=== PATIENT | male | born 1950 | race Two or more races ===

== ENCOUNTER 2016-10-30 07:50 | Inpatient (IN) | payer MEDICARE, OTHER ==
[~2016-10-30] VITALS: Ht 172.7 cm; Wt 108.4 kg
[2016-10-30] VITALS (44 sets, daily range): BP systolic 70–156; BP diastolic 36–127
[~2016-10-30 07:50] MED LIST: ATEN50TA PO; LEVO50TA8 PO; LISI10TA5 PO
[2016-10-30] MEDS ORDERED: ALBUTEROL FS 2.5 MG/3 ML VIAL.NEB NEB ONE (08:00)
[2016-10-30] MEDS ORDERED: IPRATROPIUM NEB FS 0.5 MG/2.5 ML AMPUL.NEB NEB ONE (08:00)
[2016-10-30] MEDS ORDERED: ALBUTEROL FS 2.5 MG/3 ML VIAL.NEB ONE (08:08)
[2016-10-30] MEDS ORDERED: IPRATROPIUM NEB FS 0.5 MG/2.5 ML AMPUL.NEB ONE (08:08)
--- NOTE | 2016-10-30 08:10 | NUR ---
PT BIBA FOR HEROINE ABUSE FROM HOME. AMS NOTED. ADELINA. AT BS FOR EVAL. BLOOD DRAWN BY FACILITY MAINTENANCE WORKER AT BS. SAFETY AND COMFORT MEASURES PROVIDED. WILL MONITOR.
[2016-10-30 08:24] LABS: BASOPHILS % (AUTO) 0.4 % (0.0-2.0); EOSINOPHILS % (AUTO) 0.2 % (0.0-6.0); HEMATOCRIT 42 % (39-51); HEMOGLOBIN 13.6 g/dL (13.5-17.5); LYMPHOCYTES # (AUTO) 0.5 /CMM (0.8-4.8); LYMPHOCYTES % (AUTO) 6.8 % (20.0-44.0); MEAN CORPUSCULAR HEMOGLOBIN 31 PG (26.0-33.0); MEAN CORPUSCULAR HGB CONC 32 g/dl (31.0-36.0); MEAN CORPUSCULAR VOLUME 97 fL (80-96); MONOCYTES # (AUTO) 0.4 /CMM (0.1-1.30); MONOCYTES % (AUTO) 4.9 % (2.0-12.0); NEUTROPHILS % (AUTO) 87.7 % (43.0-81.0); PLATELET COUNT (AUTO) 153 /CMM (150-450); RDW COEFFICIENT OF VARIATION 17.1 (11.5-15.0); RED BLOOD CELL COUNT(AUTO) 4.31 MIL/uL (4.5-6.0)
--- NOTE | 2016-10-30 08:30 | NUR ---
JAMEEL AT BS.
[2016-10-30 08:35] LABS: CALCIUM, SERUM 8.5 mg/dL (8.5-10.1); CARBON DIOXIDE 16 mmol/L (21-32); CHLORIDE 105 mmol/L (98-107); CREATININE 4.2 mg/dL (0.6-1.3); GFR 14 mL/min (>60); GLUCOSE 68 mg/dL (74-106); SODIUM SERUM 142 mmol/L (136-145); UREA NITROGEN, BLOOD 40 mg/dL (7-18)
[2016-10-30 08:40] LABS: ALANINE AMINOTRANSFERASE 41 U/L (12-78); ALBUMIN 3.4 g/dL (3.4-5.0); ALCOHOL, BLOOD < 3 mg/dL (0-0); ALKALINE PHOSPHATASE 106 U/L (46-116); ASPARTATE AMINOTRANSFERASE 113 U/L (15-37); BILIRUBIN,DIRECT 0.3 mg/dL (0.0-0.2); BILIRUBIN,TOTAL 0.9 mg/dL (0.2-1.0); TOTAL PROTEIN, SERUM 7.1 g/dL (6.4-8.2)
[2016-10-30 08:42] LABS: SALICYLATE 1.6 mg/dL (2.8-20.0); TROPONIN I 0.036 ng/mL (0.00-0.056)
[2016-10-30 08:43] LABS: INR 1.05 (0.87-1.13); PROTHROMBIN TIME 11.3 SECS (9.5-12.7)
[2016-10-30] MEDS ORDERED: IV NS 0.9% 1,000 ML ONE ×2 (08:48→10:03)
[2016-10-30] MEDS ORDERED: IV SET PRIMARY PUMP SET 1 EA INFUS.SET MC ONE ×6 (08:49→21:44)
[2016-10-30] MEDS ORDERED: NALOXONE HCL 0.4 MG/ML AMPUL IV ONE (09:00)
[2016-10-30] MEDS ORDERED: NALOXONE PREFILLED SYRINGE 2 MG/2 ML SYRINGE ONE (09:07)
--- NOTE | 2016-10-30 09:10 | NUR ---
PT MEDICATED ORDERED.
--- NOTE | 2016-10-30 09:19 | NUR ---
PT TAKEN TO CT.
--- NOTE | 2016-10-30 09:26 | NUR ---
PANEL ON-CALL PAGED
[2016-10-30] MEDS ORDERED: IV NS 0.9% 1,000 ML BAG IV ONE ×3 (09:30→10:30)
[2016-10-30 09:35] LABS: CANNABINOID, URINE NEGATIVE (NEGATIVE); PHENCYCLIDINE SCREEN,URINE NEGATIVE (NEGATIVE)
[2016-10-30 09:42] LABS: APPEARANCE,URINE SL CLOUDY (CLEAR); BILIRUBIN,URINE 1+ (NEGATIVE); BLOOD, URINE TRACE Ery/uL (NEGATIVE); COLOR,URINE YELLOW (YELLOW); KETONES,URINE TRACE (NEGATIVE); LEUKOCYTE ESTERASE ,URINE TRACE (NEGATIVE); NITRITE, URINE NEGATIVE (NEGATIVE); PROTEIN,URINE 1+ mg/dl (NEGATIVE); UGLUCOSE NEGATIVE (NEGATIVE); UROBILINOGEN,URINE 0.2 EU/dL (0.2)
[2016-10-30 09:46] LABS: RBC,URINE 0-2 /HPF (0-2)
[2016-10-30 09:47] LABS: ADD URINE CULTURE NO; BACTERIA,URINE Few /HPF (None Seen); SQUAMOUS EPITHELIAL CELL,UR Few /HPF (None Seen)
[2016-10-30] MEDS ORDERED: CLINDAMYCIN 600 MG in IV D5W 100 ML IV ONE (10:00)
[2016-10-30] MEDS ORDERED: CEFTRIAXONE 1GM BAG (ER ONLY) 50 ML IV ONE ×2 (10:00→10:03)
[2016-10-30 10:07] LABS: ABG BASE EXCESS -13.3 mmol/L; ABG PCO2 41.9 mmHg (35.0-45.0); ABG PH 7.164 (7.350-7.450); ABG PO2 75.1 mmHg (75.0-100.0); ABG TOTAL HEMOGLOBIN 13.5 G/dL (13.5-18.0); COHb 1.3 % (0.5-1.5); MetHb 0.3 % (0.0-1.5); O2Hb 90.5 % (94.0-97.0); SITE, ABG Left Radial; VENT MODE, BG 3LPM VIA N/C
--- NOTE | 2016-10-30 10:10 | NUR ---
REPORT GIVEN TO MATTHEW POLLOCK FOR ICU 251
[2016-10-30 10:16] LABS: LACTIC ACID 7.3 mmol/L (0.4-2.0)
[2016-10-30] MEDS ORDERED: IV NS 0.9% 1,000 ML IV PRN ×2 (11:17→11:30)
--- NOTE | 2016-10-30 11:20 | NUR ---
field horticultural specialty grower received pt from er not stable difficulty breathing abg results and pt conditions communicated with Dr. Gomez orders received for bipap and repeat 1hr after bipap, Song borja also contacted will do echo and hold 3L of fluids ordered with song borja and repeat abg in 1hr will follow md orders and communicate with md for change of condition, pt has billateral swelling of lower extremities with scabs all over 4 extremities. pt is lethargic confused able to follow commands.
[2016-10-30] MEDS ORDERED: ACETAMINOPHEN 325 MG TABLET PO PRN (11:30)
[2016-10-30] MEDS ORDERED: ENOXAPARIN SODIUM 40 MG/0.4 ML DISP.SYRIN SQ SCH (11:30)
[2016-10-30] MEDS ORDERED: ONDANSETRON HCL/PF 4 MG/2 ML VIAL IVP PRN (11:30)
--- NOTE | 2016-10-30 11:30 | NUR ---
pt placed on bipap per md order. 17/11 [id number]. alarms set mike well at this time
[2016-10-30] MEDS ORDERED: FEE PK DOSING 1 MIN EA MC ONE (11:32)
--- NOTE | 2016-10-30 11:45 | NUR ---
RN CARDIOVASCULAR ICU RECEIVED PATIENT FROM THE PREVIOUS SHIFT. POOR GAIT ON AMBULATION BUT WAS ABLE TO TRANSFER SELF TO BED WITH MINIMAL ASSISTANCE. ALERT BUT LETHARGIC. HYPOTENSIVE AT TIMES. IVF RUNNING. STABLE VITAL SINGS. SALESPERSON NECKTIES MADE AWARE OF ABG RESULTS AND CHEMISTRY RESULTS. RECEIVED ORDERS FOR BIPAP. ABLE TO FOLLOW COMMANDS ON BIPAP. WILL CONTINUE TO MONITOR AND PROVIDE CARE. Addendum: 10/30/16 at 1931 by ERNESTO EDDY RN MISTAKE - PATIENT WAS RECEIVED FROM ON A GURNEY.
[2016-10-30] MEDS ORDERED: SECONDARY IV SET 1 EA INFUS.SET MC ONE ×3 (11:58→16:35)
[2016-10-30] MEDS ORDERED: LEVOFLOXACIN 500 MG /D5W 100ML 500 MG in PREMIX 1 EA IV SCH (12:00)
[2016-10-30] MEDS ORDERED: PIPERACILLIN /TAZOBACTAM 2.25 G in IV D5W 50 ML IV SCH ×2 (12:00→13:00)
[2016-10-30] MEDS ORDERED: LEVOFLOXACIN 750 MG /D5W 150ML 750 MG in PREMIX 1 EA IV ONE (12:00)
[2016-10-30 12:58] LABS: ABG BASE EXCESS -13.5 mmol/L; ABG OXYGEN SATURATION 97.9 % (92.0-98.5); ABG PH 7.262 (7.350-7.450); ABG PO2 145.9 mmHg (75.0-100.0); ABG TOTAL HEMOGLOBIN 13.1 G/dL (13.5-18.0); AaDO2 180.2 mmHg; COHb 0.9 % (0.5-1.5); MetHb 0.8 % (0.0-1.5); O2Hb 96.2 % (94.0-97.0); SITE, ABG Right Radial
[2016-10-30] MEDS: PIPERACILLIN /TAZOBACTAM 2.25 G in IV D5W 50 ML IV SCH ×2 (13:19→20:31)
[2016-10-30] MEDS: VANCOMYCIN 1.25 GM in IV D5W 500 ML IV SCH ×2 (13:19→20:09)
[2016-10-30] MEDS: ENOXAPARIN SODIUM 30 MG/0.3 ML DISP.SYRIN SQ SCH (13:21)
[2016-10-30] MEDS ORDERED: IV NS 0.9% 1,000 ML BAG IV PRN (13:30)
[2016-10-30] MEDS: IV NS 0.9% 3,000 ML IV PRN ×3 (13:31→19:03)
--- NOTE | 2016-10-30 15:05 | NUR ---
NEIGHBORHOOD CONSERVATION OFFICER PATIENT WAS SEEN AND EXAMINED BY THE RECEPTION AT BEDSIDE. PATIENT IS ALERT AND RESTLESS ON THE BIPAP.
--- NOTE | 2016-10-30 15:13 | NUR ---
SLOPE TENDER NO FOLLOW ABGS FOR TODAY PER VACUUM APPLICATOR OPERATOR. ALSO RECEIVED ORDERS TO HOLD THE 3RD NS BOLUS ORDERED BY VENANCIO DIEZ NP.
--- NOTE | 2016-10-30 15:48 | NUR ---
DISTILLATION OPERATOR PATIENT WAS SEEN BY THE YARD CONDUCTOR. RN INFORMED MD THAT PATIENT IS HYPOTENSIVE AT TIMES. RECEIVED ORDERS FOR PICC LINE INSERTION. ALSO MD INFORMED RN TO INFORM THE MD IF PATIENT'S CONDITION CHANGES/ BECOMES CONSISTENTLY HYPOTENSIVE. WILL MONITOR.
[2016-10-30 16:33] LABS: ABG BASE EXCESS -14.2 mmol/L; ABG OXYGEN SATURATION 94.6 % (92.0-98.5); ABG PCO2 41.7 mmHg (35.0-45.0); ABG PH 7.145 (7.350-7.450); ABG PO2 86.3 mmHg (75.0-100.0); ABG TOTAL HEMOGLOBIN 12.3 G/dL (13.5-18.0); AaDO2 223.3 mmHg; COHb 1.6 % (0.5-1.5); MetHb 0.6 % (0.0-1.5); O2Hb 92.5 % (94.0-97.0); PEEP,BG 5 cm H2O; SITE, ABG Left Radial
--- NOTE | 2016-10-30 17:05 | NUR ---
MEDICAL SCIENTIFIC LIAISON PATIENT IS ON BIPAP. PATIENT IS RESTLESS ON BIPAP BUT ABLE TO FOLLOW COMMANDS. GENERALLY AWARE OF HIS OWN HEALTH STATUS.
[2016-10-30 17:15] LABS: CREATINE KINASE MB 119.5 ng/mL (0-3.6)
--- NOTE | 2016-10-30 17:24 | NUR ---
HAND OUTSIDE CUTTER CALLED RADIOLOGY FOR STAT XRAY
--- NOTE | 2016-10-30 17:25 | NUR ---
RT PT ORALLY INTUBATED BY DR. DIEZ WITH 7.5 ETT AT 25 CM AT THE LIP. PT IS ON [facility] VENT WITH SETTINGS PER MD ORDER. LINING BASTER DONE. BILAT BREATH SOUNDS ON AUSCULTATION. SUCTIONED SMALL AMOUNTS OF THICK, WHITE/YELLOW SECRETIONS. VENT PLUGGED INTO RED OUTLET. ETT SECURED BY ANCHOR FAST AND AIRWAY PATENT. ALARMS ON AND SET PROPERLY. AMBU BAG AT HEAD OF BED. NO SIGNS OF DISTRESS NOTED AT THIS TIME. WILL CONTINUE TO MONITOR THE PATIENT CLOSELY. Addendum: 10/30/16 at 1841 by RADHA GARCIA RT Amended: Links added.
--- NOTE | 2016-10-30 17:25 | NUR ---
MANPOWER DEVELOPMENT MANAGER PATIENT'S RECENT ABG RESULTS INFORMED TO SIGN LANGUAGE TEACHER. RECEIVED ORDERS TO INTUBATE. VENANCIO DIEZ CHEMICAL PLANT TECHNICAL DIRECTOR INTUBATED THE PATIENT. 2 ATTEMPTS. SEDATED ON PROPOFOL. LEVOPHED GTT INITIATED DUE TO HYPOTENSION.
--- NOTE | 2016-10-30 17:30 | NUR ---
OVERHEAD GARAGE DOOR HANGER PATIENT NOTED TO BE TACHYPNEIC AFTER THE INTUBATION. PATIENT WAS STARTED ON PROPOFOL POST INTUBATION. VENANCIO DIEZ NP AWARE.
[2016-10-30] MEDS: PROPOFOL 100 ML IV PRN (17:38)
[2016-10-30] MEDS: NOREPINEPHRINE 16 MG in IV D5W 500 ML IV PRN (17:38)
--- NOTE | 2016-10-30 18:13 | NUR ---
design engineer agricultural equipment received call from radiology to pull out et tube by 2cm bc its in the right bronchus, paged rt stat orders put in.
--- NOTE | 2016-10-30 18:20 | NUR ---
RT ET TUBE PULLED OUT 2CM PER MD ORDER. PREVIOUS TUBE PLACEMENT WAS AT 25CM AND CURRENT TUBE PLACEMENT IS SECURED 23CM AT THE LIP LINE. EQUAL BILATERAL BREATHE SOUNDS AND CHEST RISE. NO SIGNS OF RESPIRATORY DISTRESS, WILL CONTINUE TO MONITOR.
--- NOTE | 2016-10-30 19:05 | NUR ---
ENAMEL MACHINE OPERATOR PROPOFOL DECREASED 10MCG.
[2016-10-30] MEDS ORDERED: ETOMIDATE 2 MG/ML VIAL IV ONE (19:40)
[2016-10-30] MEDS ORDERED: ROCURONIUM BROMIDE 50 MG/5 ML IV ONE (19:41)
[2016-10-30 19:46] LABS: ABG BASE EXCESS -15.6 mmol/L; ABG OXYGEN SATURATION 92.1 % (92.0-98.5); ABG PCO2 50.2 mmHg (35.0-45.0); ABG PH 7.074 (7.350-7.450); ABG PO2 76.4 mmHg (75.0-100.0); AaDO2 586.4 mmHg; COHb 1.4 % (0.5-1.5); MetHb 0.6 % (0.0-1.5); O2Hb 90.3 % (94.0-97.0); SITE, ABG Right Brachial
--- NOTE | 2016-10-30 19:52 | NUR ---
BENCH REPAIR TECHNICIAN: POST INTUBATION ABG RESULTS REPORTED TO DR CARRANZA . DR CARRANZA AWARE AD GAVE ORDER TO CHANGE VENT SETTINGS . CHANGE IVF TO BICARB DRIP AND GIVE TWO AMPS BICARB. REDO ABG IN 2 HOURS AND CALL WITH ABNORMAL RESULTS. SANTIAGO RT AWARE OF NEW ORDER FOR VENT CHANGES.
--- NOTE | 2016-10-30 20:10 | NUR ---
MEDIA LIAISON OFFICER : VENT SETTING CHANGES DONE . WILL MONITOR RESPIRATORY STATUS .
--- NOTE | 2016-10-30 20:22 | NUR ---
vent settings were changed per dr Gomez, AC 26, 650,100%, +5 Addendum: 10/30/16 at 2022 by SANTIAGO KENNEY RT Amended: Links added.
[2016-10-30] MEDS ORDERED: SODIUM BICARBONATE SYR 50 MEQ/50 ML DISP.SYRIN IV ONE (20:30)
[2016-10-30] MEDS: Sodium Bicarbonate 100 MEQ in IV D5W 1,000 ML IV PRN (20:48)
--- NOTE | 2016-10-30 21:30 | NUR ---
TRACTOR TECHNICIAN: PTS O2 SATURATION IS SUSTAINING IN THE 80'S . HOB ELEVATED PT SUCTIONED. MINIMAL SECRETIONS NOTED. FIO2 100% . LEVOPHED AT MAX DOSE OF 40 MCG /MIN . DR CARRANZA AWARE AND GAVE ORDER FOR STAT ABG AND STAT CXR DUE TO READJUSTMENT OF ETT DURING DAY SHIFT . DR CARRANZA ALSO GAVE ORDER TO START NEOSYNEPHRINE.
--- NOTE | 2016-10-30 21:40 | NUR ---
NIGHT SHIFT : DR CARRANZA AWARE OF STAT ABG RESULTS . NO NEW ORDERS GIVEN . WAITING FOR CXR RESULTS.
[2016-10-30] MEDS ORDERED: PHENYLEPHRINE 10 MG/ML VIAL ONE (21:43)
[2016-10-30] MEDS ORDERED: IV D5W 250 ML IV ONE (21:44)
[2016-10-30 21:45] LABS: ABG BASE EXCESS -10.3 mmol/L; ABG PCO2 34.1 mmHg (35.0-45.0); ABG PH 7.275 (7.350-7.450); ABG PO2 70.9 mmHg (75.0-100.0); COHb 1.3 % (0.5-1.5); MetHb 0.8 % (0.0-1.5); SITE, ABG Right Brachial
[2016-10-30] MEDS: PHENYLEPHRINE 40 MG in IV D5W 250 ML IV PRN (21:54)
--- NOTE | 2016-10-30 22:15 | NUR ---
WATER TAXI OPERATOR: CALLED RADIOLOGY TO FOLLOW UP ON CXR RESULTS. STILL WAITING .
--- NOTE | 2016-10-30 22:30 | NUR ---
POLICE DETENTION ATTENDANT: STAT CXR READ , ETT IN CORRECT POSITION.
[2016-10-31] VITALS (86 sets, daily range): BP systolic 55–113; BP diastolic 23–70
--- NOTE | 2016-10-31 | NUR ---
NEAR EAST ARCHEOLOGY PROFESSOR TEMP SLIGHTLY ELEVATED , 100.5. HR ALSO ELEVATED .COOLING MEASURES DONE AND FAN USED TO HELP REDUCE TEMP. WILL CONT TO MONITOR.
[2016-10-31] MEDS ORDERED: NOREPINEPHRINE 4 MG/4 ML AMPUL IV ONE (00:30)
[2016-10-31] MEDS: NOREPINEPHRINE 16 MG in IV D5W 500 ML IV PRN ×3 (00:41→13:59)
--- NOTE | 2016-10-31 01:15 | NUR ---
BRUSH MACHINE SETTER: HR ELEVATED. REPOSITIONED PT AND COOLING MEASURES CONTINUED. REPLACED ALL LEADS AND HR DECREASED TO NORMAL LIMITS.
[2016-10-31] MEDS ORDERED: PHENYLEPHRINE 10 MG/ML VIAL ONE ×2 (01:26→04:35)
[2016-10-31] MEDS ORDERED: IV D5W 250 ML IV ONE ×2 (01:26→04:35)
--- NOTE | 2016-10-31 01:32 | NUR ---
ASSISTANT TO THE CEO NON ADMINISTERED LEVOPHED AD NEOSYNEPHRINE. PHARMACY DID NOT STOCK LEVO AND ARGENIS IS NEW ORDER.
[2016-10-31] MEDS: PHENYLEPHRINE 40 MG in IV D5W 250 ML IV PRN ×5 (01:35→15:00)
--- NOTE | 2016-10-31 02:51 | NUR ---
CLINICAL COORDINATOR: NGT INSERTED IN RIGHT NARE W ASSISST OF CHARGE NURSE . VERIFIED PLACEMENT BY AUSCULTATION AND ASPIRATION. GREEN BILE NOTED. PT HAS VERY LOW BP AND DOESN'T TOLERATE ACTIVITY WELL. CONT TO TURN AND REPOSITION THE PT EVERY TWO HOURS TOLERATED. KEEP HOB SLIGHTLY ELEVATED.
[2016-10-31] MEDS ORDERED: IV NS 0.9% 250 ML IV ONE (04:25)
[2016-10-31] MEDS ORDERED: IV NS 0.9% 250 ML IV PRN ×2 (04:30→07:30)
[2016-10-31] MEDS: PIPERACILLIN /TAZOBACTAM 2.25 G in IV D5W 50 ML IV SCH ×2 (04:48→13:19)
[2016-10-31] MEDS: PROPOFOL 100 ML IV PRN ×2 (04:49→13:47)
[2016-10-31 05:04] LABS: BASOPHILS % (AUTO) 0.1 % (0.0-2.0); EOSINOPHILS % (AUTO) 0.3 % (0.0-6.0); HEMATOCRIT 40 % (39-51); HEMOGLOBIN 13.1 g/dL (13.5-17.5); LYMPHOCYTES # (AUTO) 0.6 /CMM (0.8-4.8); MEAN CORPUSCULAR HEMOGLOBIN 32 PG (26.0-33.0); MEAN CORPUSCULAR HGB CONC 33 g/dl (31.0-36.0); MEAN CORPUSCULAR VOLUME 97 fL (80-96); MONOCYTES # (AUTO) 0.4 /CMM (0.1-1.30); MONOCYTES % (AUTO) 8.1 % (2.0-12.0); NEUTROPHILS # (AUTO) 4.5 /CMM (1.8-8.9); NEUTROPHILS % (AUTO) 80.5 % (43.0-81.0); PLATELET COUNT (AUTO) 122 /CMM (150-450); RDW COEFFICIENT OF VARIATION 16.5 (11.5-15.0); RED BLOOD CELL COUNT(AUTO) 4.13 MIL/uL (4.5-6.0); WHITE BLOOD COUNT (AUTO) 5.6 K/uL (4.3-11.0)
[2016-10-31] MEDS: VANCOMYCIN 1.25 GM in IV D5W 500 ML IV SCH (05:21)
[2016-10-31 05:28] LABS: THYROID STIMULATING HORMONE 0.891 uIU/mL (0.358-3.74)
[2016-10-31 05:34] LABS: ALBUMIN 2.6 g/dL (3.4-5.0); BILIRUBIN,TOTAL 0.7 mg/dL (0.2-1.0); CREATININE 4.9 mg/dL (0.6-1.3); POTASSIUM 4.4 mmol/L (3.5-5.1); TOTAL PROTEIN, SERUM 6.1 g/dL (6.4-8.2)
[2016-10-31 06:02] LABS: ANISOCYTOSIS 1+; BAND % (MANUAL) 42 % (0.0-5.0); LYMPHOCYTES % (MANUAL) 12 % (16-48); MONOCYTES % (MANUAL) 10 % (0-11.0); MYELOCYTES % 3 % (0-0); NEUTROPHILS % (MANUAL) 33 (42-76); PLATELET ESTIMATE GIANT PLATELET SEEN
--- NOTE | 2016-10-31 06:30 | NUR ---
AIRPLANE FIRST OFFICER DR CARRANZA CALLED FOR ABG RESULTS. ABG ORDER WAS PUT IN FOR 6 AM TODAY AND RT WAS MADE AWARE EARLIER IN THE SHIFT . ABG HAS NOT BEEN DONE BY RT. CALLED RT TO COME AND DO ABG STAT.
--- NOTE | 2016-10-31 06:56 | NUR ---
SENIOR MECHANICAL ENGINEER: ABG DONE RESULTS GIVEN TO DR CARRANZA . NEW ORDERS ENDORSED TO AM NURSE
[2016-10-31] MEDS: Sodium Bicarbonate 100 MEQ in IV D5W 1,000 ML IV PRN (07:24)
[2016-10-31] MEDS ORDERED: PANTOPRAZOLE 40 MG TABLET.DR PO SCH (07:30)
--- NOTE | 2016-10-31 07:45 | NUR ---
WOUND CARE CONSULT PATIENT UNABLE TO BE TURNED FOR SKIN ASSESSMENT AT THIS TIME DUE TO HEMODYNAMIC INSTABILITY. PATIENT ON MULTIPLE PRESSORS AT THIS TIME. I HAVE REVIEWED PHOTO IMAGES AND PER PHOTO OF THE SACRAL REGION AND NURSING DOCUMENTATION PATIENT HAS AT LEAST PARTIAL THICKNESS SKIN BREAKDOWN TO THE SACRAL AREA POA. RECOMMEND HYDROGEL AND MEPILEX DAILY. A 1ST STEP LOW AIRLOSS MATTRESS HAS BEEN ORDERED AND WILL BE PLACED PATIENT CONDITION PERMITS. CURRENTLY ON AN ATMOSAIR PRESSURE REDISTRIBUTION MATTRESS. RECOMMEND Florence PECK FOR MOISTURE MANAGEMENT. CONTINUE ALL PRESSURE ULCER PREVENTION MEASURES PER CURRENT PLAN OF CARE. PATIENT ALSO PRESENTS WITH MULTIPLE RAISED, SCABBED SKIN LESIONS TO THE BILATERAL LOWER LEGS THAT ARE CURRENTLY DRY AT THIS TIME. PATIENT WITH RAY AT 9. PATIENT WITH MULTI SYSTEM ORGAN FAILURE, FURTHER SKIN BREAKDOWN MAY BE UNAVOIDABLE. ALL DISCUSSED WITH NURSING AT THE BEDSIDE.
[2016-10-31] MEDS ORDERED: HYDROGEL DRESSING 90 GM TUBE TP PRN (08:00)
[2016-10-31] MEDS ORDERED: Z GUARD REMEDY 2 OZ OINT TP PRN (08:00)
--- NOTE | 2016-10-31 08:00 | NUR ---
ICU/RN INITIAL NOTES,AM RECEIVED PT FROM NIGHT NURSE.PT INTUBATED ETT 7.5, 23 @ THE LIP. PT ON VENT SETTINGS ORDERED BY , ABG DONE IN AM, NOTIFIED OF RESULTS, NEW ORDERS RECEIVED. DESPITE FULL VENTILATOR SUPPORT PATIENT MAINTAINING 02 SAT 91-93%. PT CURRENTLY SEDATED, NOT STABLE FOR SEDATION VACATION AT THIS TIME. PT SINUS ON TELE, WILL CONTINUE TO MONITOR. LEVOPHED INFUSING AT MAX DOSE ALONG WITH ARGENIS FOR BLOOD PRESSURE SUPPORT. PER DR. CARRANZA CHANGED THE RATE OF FLUIDS (D5 WITH 2 AMPS OF BICARB) TO 50ML/HR FROM 100 ML/HR. RIGHT NARE NG TUBE IN PLACE, PT NPO, TUBE CLAMPED. LEFT UPPER ARM PICC AND PIV'S PATENT AND INTACT, NO S/S OF INFECTION OR INFILTRATION NOTED. PT SUPINE AT THIS TIME. WILL NOT REPOSITION SINCE PATIENTS CONDITION DOES NOTE PERMIT. WILL CONTINUE TO ASSESS AND TURN AND REPOSITION PER PROTOCOL. ALL SAFETY MEASURES TAKEN,BED IN LOW POSITION, SIDE RAILS UP. TEMP 99.9, COOLING MEASURES TAKEN. WILL REASSESS.
[2016-10-31] MEDS ORDERED: VASOPRESSIN INJ 50 UNIT in IV D5W 497.5 ML IV PRN ×2 (08:30→09:30)
[2016-10-31 08:44] LABS: ABG BASE EXCESS -10.3 mmol/L; ABG OXYGEN SATURATION 92.3 % (92.0-98.5); ABG PCO2 38.1 mmHg (35.0-45.0); ABG PH 7.247 (7.350-7.450); ABG PO2 68.7 mmHg (75.0-100.0); ABG TOTAL HEMOGLOBIN 13.6 G/dL (13.5-18.0); AaDO2 606.2 mmHg; COHb 1.3 % (0.5-1.5); MetHb 0.5 % (0.0-1.5); O2Hb 90.6 % (94.0-97.0); SITE, ABG Right Brachial; VENT MODE, BG AC 650 100% +5
--- NOTE | 2016-10-31 08:50 | NUR ---
ICU/RN: WOUND NURSE AT BEDSIDE. UNABLE TO COMPLETE SKIN/WOUND ASSESSMENT DUE TO PATIENTS UNSTABLE CONDITION. WILL FOLLOW UP. ALSO UNABLE TO PUT KCI MATTRESS ON BED DUE PT DESATURATING FURTHER WITH TURNS. WILL CONTINUE TO MONITOR AND ASSESS. Addendum: 10/31/16 at 0939 by LINDA SCHUMACHER RN INCORRECT TIME: INTENDED FOR 9668
[2016-10-31 08:56] LABS: CREATINE KINASE MB 60.6 ng/mL (0-3.6)
[2016-10-31] MEDS ORDERED: HYDROGEL DRESSING 90 GM TUBE TP SCH (09:00)
[2016-10-31] MEDS ORDERED: PANTOPRAZOLE 40 MG VIAL IV SCH (09:00)
[2016-10-31] MEDS ORDERED: Z GUARD REMEDY 2 OZ OINT TP SCH (09:00)
[2016-10-31] MEDS ORDERED: IV SET PRIMARY PUMP SET 1 EA INFUS.SET MC ONE ×2 (10:03→16:05)
[2016-10-31 10:23] LABS: ABG BASE EXCESS -10.7 mmol/L; ABG OXYGEN SATURATION 91.7 % (92.0-98.5); ABG PCO2 35.3 mmHg (35.0-45.0); ABG PH 7.259 (7.350-7.450); ABG PO2 66.7 mmHg (75.0-100.0); ABG TOTAL HEMOGLOBIN 14.1 G/dL (13.5-18.0); COHb 1.1 % (0.5-1.5); MetHb 0.6 % (0.0-1.5); O2Hb 90.1 % (94.0-97.0); PEEP,BG 10 cm H2O; SITE, ABG Right Brachial; VT, ABG 650 mL
[2016-10-31 11:20] LABS: D-DIMER 12.3 mg/L(FEU (0.17-0.50); INR 1.22 (0.87-1.13); PROTHROMBIN TIME 13.2 SECS (9.5-12.7)
[2016-10-31 11:32] LABS: CALCIUM, SERUM 7.3 mg/dL (8.5-10.1); CREATININE 5.3 mg/dL (0.6-1.3)
--- NOTE | 2016-10-31 11:45 | NUR ---
ICU/RN: AT BEDSIDE. PT NOW ON THREE VASOPRESSORS. ABG DONE, RESULTS RELAYED TO MD, VENT CHANGES DONE. PEEP NOW WILL BE 12. WILL CONTINUE TO MONITOR.
--- NOTE | 2016-10-31 11:58 | NUR ---
INCREASED PEEP TO [address] CARRANZA ORDER Addendum: 10/31/16 at 1410 by MONSTER AGUIRRE RT Amended: Links added.
[2016-10-31] MEDS: ENOXAPARIN SODIUM 30 MG/0.3 ML DISP.SYRIN SQ SCH (12:41)
--- NOTE | 2016-10-31 13:57 | NUR ---
PT REC'D ON ETT SIZE 7.5 23CM @ LIP. PT ON [facility] VENT ON SETTINGS CHARTED. STEAM PIPE FITTER CUFF PRESSURE NOTED. BREATH SOUNDS ARE CLEAR/DIM AND PT HAS BILATERAL CHEST RISE. SX'D THICK SMALL YELLOW SECRETIONS. ALARMS ARE SET AND AUDIBLE, VENT IS PLUGGED IN RED OUTLET. AMBU BAG IS BEDSIDE. WILL CONTINUE TO MONITOR. Addendum: 10/31/16 at 1407 by MONSTER AGUIRRE RT Amended: Links added.
--- NOTE | 2016-10-31 14:08 | NUR ---
INCREASED PEEP TO [address] CARRANZA ORDER Addendum: 10/31/16 at 1409 by MONSTER AGUIRRE RT Amended: Links added.
--- NOTE | 2016-10-31 15:00 | NUR ---
ICU/RN: STAT ORDERS RECEIVED FOR 2 AMPS BICARB, GIVEN, FOR HEART RATE SLOWING AND COMPLEXES DECREASING IN SIZE AND WIDENING.
[2016-10-31] MEDS ORDERED: SODIUM BICARBONATE SYR 50 MEQ/50 ML DISP.SYRIN ONE (15:04)
[2016-10-31] MEDS ORDERED: SODIUM BICARBONATE SYR 50 MEQ/50 ML DISP.SYRIN IV STA (15:04)
--- NOTE | 2016-10-31 15:10 | NUR ---
2 AMPS BICARB GIVEN STAT BY OVERRIDE HEART RATE SLOWING AND COMPLEXES DECREASING IN SIZE AND WIDENING WITH ST SEG ELEVATION-CHARTED ACCORDINGLY
--- NOTE | 2016-10-31 15:26 | NUR ---
DECREASED PEEP TO 0 DUE TO LOW BP AND HR PER DR. CARRANZA ORDER Addendum: 10/31/16 at 1526 by MONSTER AGUIRRE RT Amended: Links added.
[2016-10-31] MEDS ORDERED: PHENYLEPHRINE 80 MG in IV D5W 250 ML IV PRN (15:30)
[2016-10-31] MEDS ORDERED: HEPARIN SODIUM, PORCINE 5000 UNITS/1 ML VIAL IV STA (15:45)
--- NOTE | 2016-10-31 15:58 | NUR ---
ICU/RN: REPORTED RESULTS OF BILATERAL LOWER EXTREMITY DOPPLER. Nonocclusive thrombus in the left superficial femoral vein. AWARE. ORDERS FOR HEPARIN DRIP RECEIVED. BOLUS AND DRIP INITIATED. WILL FOLLOW PROTOCOL.
[2016-10-31] MEDS ORDERED: HEPARIN INFUSION/D5W 500 ML IV PRN (16:00)
--- NOTE | 2016-10-31 17:01 | NUR ---
ICU/RN: PT UPDATE: PT UNSTABLE, MAX ON LEVOPHED, VASOPRESSIN AND ARGENIS, HOWEVER STILL UNABLE TO MAINTAIN BP >90. OS SAT 80-82% ON 100% FIO2. HEPARIN DRIP INFUSING ORDERED. CONTINUING SUPPORTIVE CARE. FAMILY AT BEDSIDE.
--- NOTE | 2016-10-31 18:06 | NUR ---
D/W FAMILY AT BEDSIDE WITH RN NATALIA. SISTER ANNETTE LIMA WHO STATES SHE IS PT'S DECISION MAKER AND HAS BEEN THE CLOSEST TO THE PT NOW REQUESTS THAT PT BE A NO CODE STATUS BUT CONTINUE FULL AGGRESSIVE CARE. ALMA ROSA DIEZ CALLED FOR ORDERS
--- NOTE | 2016-10-31 18:30 | NUR ---
ICU/RN: SISTER ANNETTE LIMA AT BEDSIDE. PT STATES SHE IS THE DECISION MAKER FOR PT AND WANTS TO CHANGE CODE STATUS TO NO CODE. ANNETTE STATES SHE IS VERY CLOSE WITH HIM AND SPOKE TO HIM A FEW DAYS AGO. INFORMED AND TLO ORDERS RECEIVED. WILL CARRY OUT WISHES. PT CONTINUES ON TRIPLE PRESSORS, FLUIDS, AND HEPARIN. ALL NEEDS WILL BE ATTENDED TO.
--- NOTE | 2016-10-31 19:14 | NUR ---
ICU/RN ENDING NOTES REPORT ENDORSED TO NIGHT NURSE FOR CONTINUATION OF CARE. PT MADE NO CODE PER FAMILY HOWEVER, WE ARE CONTINUING FULL AGGRESSIVE TREATMENT. PT CONTINUES ON VENT SETTINGS ORDERED BY MD, TRIPLE PRESSORS FOR BP SUPPORT, DIPRIVAN FOR SEDATION, HEPARIN DRIP AND IV FLUIDS ORDERED. ALL NEEDS MET. KCI MATTRESS AT BEDSIDE PT UNSTABLE,UNABLE TO INSERT, TILE PICKER AND WOUND NURSE AWARE. WILL CONTINUE CARE.
--- NOTE | 2016-10-31 19:30 | NUR ---
DEVELOPMENT TEAM LEAD: PT ORALLY INTUBATED AND WT DNR STATUS. CONTINUE ON CURRENT MEDS ORDERED. JUNCTIONAL RHYTHM AT THIS TIME. COMFORT MEASURES NOTED.
--- NOTE | 2016-10-31 19:41 | NUR ---
PET TECHNOLOGIST: PT NOTED BRADYCARDIC AND ASYSTOLE ON AIRCRAFT RIVETER. ASSESSMENT DONE WT NO BP AND NO MAJOR PULSES APPRECIATED. BILAT. PUPILS FIXED AND DILATED. PRONOUNCED BY CHARGE NURSE ED.
--- NOTE | 2016-10-31 19:50 | NUR ---
HEARING THERAPIST: CALLED [facility] AND SPOKE WT CLAUDIA TO REPORT . CASE # [id number]. PT IS A NON-TESTER WAFER SUBSTRATE'S CASE. PT'S SISTER MELL AND DR. SINGH MADE AWARE OF TIME OF .
--- NOTE | 2016-10-31 20:15 | NUR ---
VISITING PROFESSOR: FAMILY AT BEDSIDE. RELEASED BELONGINGS TO SISTER MELL. PROVIDED PRIVACY.
--- NOTE | 2016-10-31 20:17 | NUR ---
ATTORNEY LAWYER: CALLED OCCUPATIONAL HEALTH NURSE SUPERVISOR'S OFFICE AND SPOKE WT MS. FARLEY TO REPORT . . UPDATED PT'S SISTER MELL. Addendum: 10/31/16 at 2220 by JER GUO RN CORRECTION: TIME CALLED TO OCCUPATIONAL HEALTH NURSE SUPERVISOR'S OFFICE AT 2130 NOT 2016.
--- NOTE | 2016-10-31 20:19 | NUR ---
PER NUMERICAL CONTROL MACHINE OPERATOR, PT at 1941. ET TUBE WAS REMOVED AT 2018.
--- NOTE | 2016-10-31 21:35 | NUR ---
MEETING MANAGER: [facility] COMPUTER NETWORK AND SYSTEMS ENGINEER AND BIANKA & DONNA, RNs.
--- NOTE | 2016-10-31 22:10 | NUR ---
PLATE HANGER: SPOKE JOE BARRON FROM LAB TO HOLD ALL LABS DRAWN FOR VOTING MACHINE MECHANIC'S CASE.
[2016-11-01] MEDS ORDERED: LEVOFLOXACIN 500 MG /D5W 100ML 500 MG in PREMIX 1 EA IV SCH (12:00)
[2016-11-02] MEDS ORDERED: VANCOMYCIN 1.25 GM in IV D5W 500 ML IV SCH (12:00)
== END 2016-10-31 19:41 | disposition expired | DRG 871 ==
LOC: ER 07:53 → ICU 09:47
PROVIDERS: ADMIT Nurse Practitioner Acute Care; ATTEND Nurse Practitioner Acute Care
PROC: 0BH17EZ Insertion of Endotracheal Airway into Trachea, Via Natural or Artificial Opening (ICD-10-PCS; principal; 2016-10-30)
PROC: 5A1945Z Respiratory Ventilation, 24-96 Consecutive Hours (ICD-10-PCS; 2016-10-30)
PROC: 5A09357 Assistance with Respiratory Ventilation, Less than 24 Consecutive Hours, Continuous Positive Airway Pressure (ICD-10-PCS; 2016-10-30)
PROC: 02HV33Z Insertion of Infusion Device into Superior Vena Cava, Percutaneous Approach (ICD-10-PCS; 2016-10-30)
PROC: B548ZZA Ultrasonography of Superior Vena Cava, Guidance (ICD-10-PCS; 2016-10-30)
DX: A41.9 Sepsis, unspecified organism (principal); G93.41 Metabolic encephalopathy; J96.02 Acute respiratory failure with hypercapnia; Z51.5 Encounter for palliative care; J69.0 Pneumonitis due to inhalation of food and vomit; J96.01 Acute respiratory failure with hypoxia; K72.00 Acute and subacute hepatic failure without coma; N17.0 Acute kidney failure with tubular necrosis; R65.21 Severe sepsis with septic shock; N17.9 Acute kidney failure, unspecified; N39.0 Urinary tract infection, site not specified; F32.3 Major depressive disorder, single episode, severe with psychotic features; E87.2 Acidosis; I12.9 Hypertensive chronic kidney disease with stage 1 through stage 4 chronic kidney disease, or unspecified chronic kidney disease; N18.9 Chronic kidney disease, unspecified; K74.60 Unspecified cirrhosis of liver; G40.909 Epilepsy, unspecified, not intractable, without status epilepticus; E78.5 Hyperlipidemia, unspecified; K21.9 Gastro-esophageal reflux disease without esophagitis; F41.9 Anxiety disorder, unspecified; Z87.891 Personal history of nicotine dependence; R74.0 Nonspecific elevation of levels of transaminase and lactic acid dehydrogenase [LDH]; B19.20 Unspecified viral hepatitis C without hepatic coma; E66.9 Obesity, unspecified; F11.10 Opioid abuse, uncomplicated; L89.152 Pressure ulcer of sacral region, stage 2; T50.901A Poisoning by unspecified drugs, medicaments and biological substances, accidental (unintentional), initial encounter; Z59.0 Homelessness
CPT/HCPCS: 31720; 36415; 36569; 36600; 70450-TC; 71010-TC; 76770-TC; 80048-TC; 80053-TC; 80061-TC; 80076-TC; 80202-TC; 80305; 81000-TC; 82550-TC; 82553-TC; 82803-TC; 82962-TC; 83605-TC; 83735-TC; 83880; 84100-TC; 84443-TC; 84484-TC; 85025-TC; 85378-TC; 85610-TC; 85730-TC; 87040-TC; 87081-TC; 93307-TC; 93970-TC; 94002-TC; 94003-TC; A4216; A4606; A6248; A6402; C1751; C9113; G0480; G6039-TC; J0696; J1644; J1650; J1956; J2310; J2370; J2543; J3370; J3490; J7030; J7050; J7060; J7070; Z7610